=== PATIENT | male | born 1980 | race Caucasian/White ===

== ENCOUNTER 2023-05-22 09:19 | Emergency (ER) | payer SELFPAY ==
[2023-05-22 09:31] VITALS: BP 129/76; PULSE 61; RESP 16; TEMP 37.2; O2SAT 99
--- NOTE | 2023-05-22 09:53 | ED.GENADULT ---
HPI - General Adult General Chief complaint: Eye Problems Stated complaint: right eye painful Source: patient Mode of arrival: ambulatory Limitations: no limitations History of Present Illness HPI narrative: Patient presents for evaluation of right eye irritation. Symptom onset 0200 this morning. He woke from sleep at that time with pain, redness and tearing. He thought something may have gotten stuck in his eye. He denies crusting and visual disturbance. He wears glasses but not contacts. He attempted to irrigate his eye and had mild improvement in his symptoms. No recent sick contacts to his knowledge. Related Data Allergies Allergy/AdvReac Type Severity Reaction Status Date / Time Cat Dander Allergy Mild Other Uncoded 05/22/23 09:25 Review of Systems Review of Systems: CONSTITUTIONAL: Denies fever, chills, or sweats. EYES: Reports redness, tearing, irritation and pain in the right eye ENT: Denies rhinorrhea, congestion, sore throat, or otalgia. CARDIOVASCULAR: Denies chest pain, palpitations, or edema. RESPIRATORY: Denies cough or dyspnea. GASTROINTESTINAL: Denies abdominal pain, nausea, vomiting, or diarrhea. GENITOURINARY: Denies dysuria or hematuria. SKIN: Denies rash or itching. MUSCULOSKELETAL: Denies back pain, joint pain, or myalgia. NEUROLOGIC: Denies headache, numbness, dizziness, or weakness. PSYCHIATRIC: Denies anxiety or depression. [facility] Past Medical History Medical History No pertinent past medical history Surgical History Surgical History No pertinent past surgical history Family History Family History Mother Family history non-contributory Social History Social History Smoking status: Never smoker Substance use: never Gender identity (if verbalized by the patient): Male Spiritual care concerns: No Exam Narrative: GENERAL: Well-appearing, well-nourished, and in no acute distress. HEAD: Normocephalic, atraumatic. EYES: PERRLA and EOMI. There is a small area of dye uptake at 8 o'clock position of the right eye when evaluated with fluorescein stain and Wood's lamp evaluation. ENT: Nares clear, no rhinorrhea or epistaxis. Mucous membranes moist. Oropharynx without tonsillar hypertrophy exudate or other lesions. Bilateral TMs pearly melara nonbulging NECK: Supple. No adenopathy or masses. No carotid bruits or JVD CHEST: Clear to auscultation. No respiratory distress. No wheezes rales or rhonchi HEART: Regular rate and rhythm. No murmur heard. Normal peripheral pulses. ABDOMEN: Soft, nontender, nondistended, normal active bowel sounds. EXTREMITIES: Normal range of motion. No edema. SKIN: Warm, dry, no rash. NEURO: No focal deficits. Alert and oriented x3. PSYCH: Normal mood and affect. Course Course Emergency Course: This is a 42 year old male who presented for evaluation of redness, irritation and tearing of right eye. She has evidence of corneal abrasion on right. Will tx with erythromycin. Follow up with primary provider. Go to the ER for worsening symptoms. Pt in agreement with plan of care. Level of Care: Express Care Visit Vital Signs Vital signs: Vital Signs Temperature 37.2 C 05/22/23 09:31 Pulse Rate 61 05/22/23 09:31 Respiratory Rate 16 05/22/23 09:31 Blood Pressure 129/76 05/22/23 09:31 Pulse Oximetry 99 05/22/23 09:31 Oxygen Delivery Room Air 05/22/23 09:31 Temperature 37.2 C 05/22/23 09:31 Pulse Rate 61 05/22/23 09:31 Respiratory Rate 16 05/22/23 09:31 Blood Pressure 129/76 05/22/23 09:31 Pulse Oximetry 99 05/22/23 09:31 Oxygen Delivery Room Air 05/22/23 09:31 Medical Decision Making Vital Signs Vital Signs: Vital Signs Temperature 37.2 C 05/22/23
== END 2023-05-22 09:55 | disposition home or self-care (01) ==
PROVIDERS: Emergency Provider Nurse Practitioner
DX: S05.01XA Injury of conjunctiva and corneal abrasion without foreign body, right eye, initial encounter (principal); X58.XXXA Exposure to other specified factors, initial encounter
CPT/HCPCS: 99213; A9270; G0463